=== PATIENT | male | born 1985 | race Caucasian/White ===

== ENCOUNTER 2022-11-12 14:32 | Emergency (ER) | payer OTHER ==
[2022-11-12] MEDS ORDERED: ACETAMINOPHEN TAB 500 MG TAB PO STA (15:41)
[2022-11-12] MEDS ORDERED: AMOXIC-POT CLAV 875-125MG 1 EACH TAB PO STA (15:41)
[2022-11-12] MEDS ORDERED: SULFAMETHOX-TMP 800-160MG 1 EACH TAB PO STA (15:41)
[2022-11-12] MEDS ORDERED: MUPIROCIN 2% OINT 22 GM TUBE TOPICAL STA (15:41)
--- NOTE | 2022-11-12 15:46 | ED ---
Extremity Problem HPI - General Chief complaint: Recheck/Abnormal Lab/Rx Stated complaint: xray knee Time Seen by Provider: 11/12/22 15:18 Source: patient, RN notes reviewed, old records reviewed Mode of arrival: ambulatory Limitations: no limitations - History of Present Illness Initial comments: This is a 28-year-old male DF for evaluation patient presents today for evaluation regards to left ankle pain left lower Shorty pain. Patient is no medical history takes no medication. Patient believes initial injury occurred will playing basketball a few days ago when this has began a patient was started on antibiotics. Patient states the redness has been about the same now worse or better was sent in for evaluation for possible injury while playing basketball. Patient is able to amply without difficulty no fevers and no streaking up his leg. MD Complaint: extremity swelling, other (Left lower leg erythema and edema la teral) -: days(s) Location: left, lower extremity -: No myalgia (No pain) Radiation: none Severity scale (1-10): 4 Quality: aching (Localized erythema and tenderness) Consistency: constant Improves with: nothing Worsens with: nothing Associated Symptoms: denies other symptoms - Related Data Previous Rx's Medication Instructions Recorded Amoxic-Pot Clav 875-125Mg 1 tab PO Q12HR #20 tablet 11/12/22 [Augmentin 875-125] Sulfamethox-Tmp 800-160Mg [Bactrim 2 tab PO BID #40 tab 11/12/22 DS 800-160 mg] Allergies Allergy/AdvReac Type Severity Reaction Status Date / Time naproxen [From Naprosyn] Allergy Unknown Verified 11/12/22 15:02 Review of Systems ROS Statement: Those systems with pertinent positive or pertinent negative responses have been documented in the HPI. ROS Other: All systems not noted in ROS Statement are negative. Past Medical History Past Medical History: Asthma, Seizure Disorder History of Any Multi-Drug Resistant Organisms: None Reported Past Surgical History: Orthopedic Surgery Past Psychological History: No Psychological Hx Reported Smoking Status: Current every day smoker Past Alcohol Use History: Daily Past Drug Use History: None Reported General Exam Limitations: no limitations General appearance: alert, in no apparent distress Head exam: Present: atraumatic, normocephalic, normal inspection Eye exam: Present: normal appearance, PERRL, EOMI. Absent: scleral icterus, conjunctival injection, periorbital swelling ENT exam: Present: normal exam, mucous membranes moist Neck exam: Present: normal inspection. Absent: tenderness, meningismus, lymphadenopathy Respiratory exam: Present: normal lung sounds bilaterally. Absent: respiratory distress, wheezes, rales, rhonchi, stridor Cardiovascular Exam: Present: regular rate, normal rhythm, normal heart sounds. Absent: systolic murmur, diastolic murmur, rubs, gallop, clicks GI/Abdominal exam: Present: soft, normal bowel sounds. Absent: distended, tenderness, guarding, rebound, rigid Extremities exam: Present: normal inspection, full ROM, tenderness, normal capillary refill, other (Left ankle laterally Extremity has a silver dollar- sized area of erythema edema and warmth). Absent: pedal edema, joint swelling, calf tenderness Back exam: Present: normal inspection Neurological exam: Present: alert, oriented X3, CN II-XII intact Psychiatric exam: Present: normal affect, normal mood Skin exam: Present: warm, dry, intact, normal color. Absent: rash Course Vital Signs 11/12/22 11/12/22 14:59 16:52 Temperature 98.0 F 98.1 F Pulse Rate 77 65 Respiratory 17 18 Rate Blood Pressure 157/89 156/91 O2 Sat by Pulse 97 99 Oximetry - Reevaluation(s) Reevaluation #1: 11/12/22 16:55 Medical record is reviewed Reevaluation #2: 11/12/22 16:55 Patient has no change in symptoms here in the ER Reevaluation #3: 11/12/22 16:55 Patient informed results and questions are answered Reevaluation #4: 11/12/22 16:55 Was pt. sent in by a medical professional or institution? @ -no Did you speak to anyone other than the patient for history? @ -no Did you review nursing and triage notes? @ -agree Were old charts reviewed? @ -no Differential Diagnosis? @ -prior EKG interpreted by me (3pts min.)? @ -no X-rays interpreted by me (1pt min.)? @ -yes CT interpreted by me (1pt min.)? @ -no U/S interpreted by me (1pt. min.)? @ -no What testing was considered but not performed? (CT, X-rays, U/S, labs)? Why? @ -no What meds were considered but not given? Why? @ -no Did you discuss the management of the patient with other professionals? @ -no Did you reconcile home meds? @ -no Was smoking cessation discussed for >3mins.? @ -no Was critical care preformed (if so, how long)? @ -no Were there social determinants of health that impacted care today? How? (Homelessness, low income, unemployed, alcoholism, drug addiction, transportation, low edu. Level, literacy, decrease access to med. care, longterm, rehab)? @ -no Was there de-escalation of care discussed even if they declined? (Discuss DNR or withdrawal of care, Hospice)? @ -no What co-morbidities impacted this encounter? (DM, HTN, Smoking, COPD, CAD, Cancer, CVA, Hep., AIDS, mental health diagnosis, sleep apnea, morbid obesity)? @ -none Was patient admitted / discharged? @ -36 male DF for evaluation of left ankle pain, redness area size of silver dollar. Patient placed on antibiotics and can be discharged home Discharge Undiagnosed new problem with uncertain prognosis? @ -no Drug Therapy requiring intensive monitoring for toxicity (Heparin, Nitro, Insulin, Cardizem)? @ -no Were any procedures done? @ -no Diagnosis/symptom? @ -Left ankle cellulitis Acute, or Chronic, or Acute on Chronic? @ -no Uncomplicated (without systemic symptoms) or Complicated (systemic symptoms)? @ -uncomplicated Side effects of treatment? @ -no Exacerbation, Progression, or Severe Exacerbation] @ -no Poses a threat to life or bodily function? @ -no 11/21/22 15:43 Medical Decision Making - Medical Decision Making 36 male to the ER ankle pain left ankle pain swelling and erythema mild tenderness. No significant injury found on x-ray patient can be discharged home - Radiology Data Radiology results: report reviewed (X-ray left ankle is negative for acute disease), image reviewed Disposition Clinical Impression: Cellulitis of left ankle Disposition: HOME SELF-CARE Condition: Good Instructions (If sedation given, give patient instructions): Cellulitis (ED) Prescriptions: Amoxic-Pot Clav 875-125Mg [Augmentin 875-125] 1 tab PO Q12HR #20 tablet Sulfamethox-Tmp 800-160Mg [Bactrim DS 800-160 mg] 2 tab PO BID #40 tab Is patient prescribed a controlled substance at d/c from ED?: No Referrals: None,Stated [Primary Care Provider] - 1-2 days Time of Disposition: 16:20
--- NOTE | 2022-11-12 16:06 | XR ---
EXAMINATION TYPE: XR ankle complete LT, XR tibia fibula LT DATE OF EXAM: 11/12/2022 CLINICAL HISTORY: Pain and redness. TECHNIQUE: Frontal and lateral images of the left leg and ankle are obtained. Additional oblique imag es of the left ankle. COMPARISON: None. FINDINGS: No acute fracture or dislocation in the left tibia or fibula. Large intramedullary alyssa with 2 proximal fixating screws and single transverse distal fixating screw in the tibia is identified th rough healed fracture of the distal tibial diaphysis. There is a healed spiral fracture of the dista l fibular diaphysis. Visualized portion of the joint appears within normal limits. Ankle images show no acute fracture or dislocation. Moderate spurring medial and lateral malleolus is present. Ankle mortise symmetry is preserved. Overlying soft tissues are unremarkable. IMPRESSION: As above.
[2022-11-12 16:54] VITALS: BP 156/91; PULSE 65; RESP 18; TEMP 98.1
== END 2022-11-12 16:55 | disposition home or self-care (01) ==
LOC: EC 14:32
DX: L03.116 Cellulitis of left lower limb (principal); J45.909 Unspecified asthma, uncomplicated; F17.200 Nicotine dependence, unspecified, uncomplicated; Z88.6 Allergy status to analgesic agent
CPT/HCPCS: 99283